=== PATIENT | female | born 1990 | race Caucasian/White ===

== ENCOUNTER 2016-08-29 18:21 | Emergency (ER) | payer SELFPAY ==
[~2016-08-29 18:21] MED LIST: PRENATAL VITAMI1 T10 PO
--- NOTE | 2016-08-29 18:50 | NUR ---
CALLED PT FOR TRIAGE ASSESSMENT, NO ANSWER.
--- NOTE | 2016-08-29 19:00 | NUR ---
PATIENT LEFT WITHOUT BEING SEEN BY DR. KEANE. NO FURTHER CARE PROVIDED FOR PATIENT.
== END 2016-08-29 19:00 | disposition left against medical advice (07) ==
LOC: MED 18:21
DX: G43.909 Migraine, unspecified, not intractable, without status migrainosus (principal); Z53.21 Procedure and treatment not carried out due to patient leaving prior to being seen by health care provider

== ENCOUNTER 2016-10-22 01:34 | Emergency (ER) | payer OTHER ==
[~2016-10-22] VITALS: Ht 167.6 cm; Wt 71.2 kg
[~2016-10-22 01:34] MED LIST changes: +PREN-385 PO; -PRENATAL VITAMI1 T10 PO
[2016-10-22 01:44] VITALS: BP 117/71
--- NOTE | 2016-10-22 02:00 | NUR ---
AMBULATED TO ER BED 8
--- NOTE | 2016-10-22 03:18 | NUR ---
Patient being evaluated by physician at bedside.
[2016-10-22 03:54] VITALS: BP 117/71
== END 2016-10-22 03:54 | disposition home or self-care (01) ==
LOC: MED 01:34
DX: N94.6 Dysmenorrhea, unspecified (principal); Z79.899 Other long term (current) drug therapy
CPT/HCPCS: 81002; 81025; 99282

== ENCOUNTER 2017-05-07 01:25 | Emergency (ER) | payer OTHER ==
[~2017-05-07] VITALS: Ht 167.6 cm; Wt 67.2 kg
[2017-05-07 01:35] VITALS: BP 134/81
--- NOTE | 2017-05-07 01:41 | NUR ---
TO ER BED 11
--- NOTE | 2017-05-07 01:45 | NUR ---
Pt states that she and her partner were having intercourse earlier in the evening when she began experincing severe vaginal and lower back pain. Pt A&Ox4. Pt denies vaginal discharge at this time. Pt afebrile. Pt sates pain has diminished since time of incident. ER MD notified. Pt in poc in bed. VSS. Continue to monitor.
[2017-05-07] MEDS ORDERED: ALBUTEROL SULFATE/IPRATROPIU 3 ML SOL IH ONE (02:20)
[2017-05-07] MEDS ORDERED: cefTRIAXone 250 MG in LIDOCAINE MPF 1% - **ER/OR** 0.9 ML IM ONE (02:30)
[2017-05-07] MEDS ORDERED: IBUPROFEN 800 MG TAB PO ONE (02:30)
[2017-05-07] MEDS ORDERED: AZITHROMYCIN 250 MG TAB PO ONE (02:30)
[2017-05-07 03:35] VITALS: BP 134/81
--- NOTE | 2017-05-07 03:35 | NUR ---
Patient discharged with v/s stable. Written and verbal after care instructions given and explained. Patient alert, oriented and verbalized understanding of instructions. Ambulatory with steady gait. All questions addressed prior to discharge. ID band removed. Patient advised to follow up with PMD. Rx of Motrin and Miralax given. Patient educated on indication of medication including possible reaction and side effects. Opportunity to ask questions provided and answered.
--- NOTE | 2017-05-07 04:54 | NUR ---
Sobia clements in [facility] - 05/07/17 at 0455 by LILLIAMJ dc
[2017-05-09 06:24] LABS: CHLAMYDIA TRACHOMATIS AMP DNA Negative (Negative)
== END 2017-05-07 03:35 | disposition home or self-care (01) ==
LOC: MED 01:25
DX: R10.2 Pelvic and perineal pain (principal); R11.0 Nausea; K59.00 Constipation, unspecified; Z79.899 Other long term (current) drug therapy
CPT/HCPCS: 36415; 74018; 81002; 81025; 96372; 99285; J0696; J2001; 87491

== ENCOUNTER 2017-06-19 08:08 | Emergency (ER) | payer OTHER ==
[~2017-06-19] VITALS: Ht 167.6 cm; Wt 72.6 kg
[2017-06-19 08:18] VITALS: BP 127/72
--- NOTE | 2017-06-19 08:25 | NUR ---
PATIENT PRESENTS TO ED WITH frontal lobe ludwig and severe nausea . PT STATES . DENIES D; SKIN IS PINK/WARM/DRY; AAOX4 WITH EVEN AND STEADY GAIT; LUNGS CLEAR BL; HR EVEN AND REGULAR; PT DENIES ANY FEVER, CP, SOB, OR COUGH AT THIS TIME; PATIENT STATES PAIN OF 10/10 AT THIS TIME; VSS; PATIENT POSITIONED FOR COMFORT; HOB ELEVATED; BEDRAILS UP X2; BED DOWN. ER MD MADE AWARE OF PT STATUS.
[2017-06-19] MEDS ORDERED: SUMAtriptan 6 MG/0.5 ML VIAL SUBQ ONE (08:35)
[2017-06-19] MEDS ORDERED: ONDANSETRON 4 MG ODT PO ONE (08:35)
[2017-06-19] MEDS ORDERED: KETOROLAC 30 MG/ML VIAL IM ONE (09:35)
--- NOTE | 2017-06-19 10:41 | NUR ---
PT C/O PERSISTENT HEADACHE 12/10. KEPT ENVIRONMENT CALM, DIM LIGHT. KEPT PT ON COMORTABLE POSITION. ADMINISTERED MEDICATION PER ORDERED.
[2017-06-19] MEDS ORDERED: SUMAtriptan 25 MG TAB PO ONE (10:55)
[2017-06-19] MEDS ORDERED: APAP/BUTAL/CAFF 325/50/40 MG 1 TAB PO ONE (11:00)
--- NOTE | 2017-06-19 11:23 | NUR ---
PT C/O PERSISTANT HEADACHE 12/10. MEDICATED PER ORDER FOR PAIN.
--- NOTE | 2017-06-19 11:53 | NUR ---
PT VERBALIZED REDUCED PAIN.
[2017-06-19 11:58] VITALS: BP 128/76
--- NOTE | 2017-06-19 12:07 | NUR ---
PT DISCHARGED ON STABLE CONDITION. DISCHARGE TEACHING PROVIDED REGARDING MEDICATION, HOME CARE, AND F/U . VERBALIZED UNDERSTANDING.
== END 2017-06-19 12:07 | disposition home or self-care (01) ==
LOC: MED 08:08
DX: G43.909 Migraine, unspecified, not intractable, without status migrainosus (principal); Z79.899 Other long term (current) drug therapy
CPT/HCPCS: 96372; 99284; J1885; J3030; Q0163; S0119

== ENCOUNTER 2019-09-16 15:36 | Emergency (ER) | payer OTHER ==
[~2019-09-16] VITALS: Ht 167.6 cm; Wt 79.4 kg
[2019-09-16 16:15] VITALS: BP 130/84
[2019-09-16] MEDS ORDERED: KETOROLAC 30 MG/ML VIAL IM ONE (17:10)
--- NOTE | 2019-09-16 17:10 | NUR ---
PT TO CHAIR C
--- NOTE | 2019-09-16 17:20 | NUR ---
29 Y/O FEMALE FROM HOME C/O LT ANKLE PAIN S/P TRIPPING OVER BALL AND "TWISTING" ANKLE. PT STATES SHE HEARD AND FELT A POP. PER PT SHE IS UNABLE TO AMBULATED. NOTICABLE SWELLING TO LATERAL ASPECT OF ANKLE. 8/10 ACHING/THROBBING. HAS NOT TAKEN MEDICATION FOR PAIN. SKIN WARM, DRY, INTACT. AWAKE AND ALERT POSITIONED FOR COMFORT. VSS MEDHX: DENIES
--- NOTE | 2019-09-16 18:00 | NUR ---
DECREASE IN PAIN AFTER TORADOL IM. PAIN AT TOLERABLE LEVEL
--- NOTE | 2019-09-16 18:09 | NUR ---
POSTERIOR SHORT LEG SPLINT APPLIED TO PTS LET LEG. CAP REFILL <2 SEC, SKIN WARM DRY AND INTACT AFTER PLACEMENT. PT VERBALIZES AND RETURN DEMONSTRATES USE OF CRUTCHES.
--- NOTE | 2019-09-16 18:13 | NUR ---
APPLIED POSTERIOR SHORT LEG SPLINT TO LEFT ANKLE WITHOUT ANY ISSUES. PT DEMONSTRATED PROPER USE OF CRUTCHES WITHOUT ANY ISSUES
[2019-09-16 18:14] VITALS: BP 122/79
--- NOTE | 2019-09-16 18:15 | NUR ---
Patient discharged with v/s stable. Written and verbal after care instructions given and explained. Patient alert, oriented and verbalized understanding of instructions. Ambulatory with steady gait. All questions addressed prior to discharge. ID band removed. Patient advised to follow up with PMD. Rx of IBUPROFEN 600MG given. Patient educated on indication of medication including possible reaction and side effects. Opportunity to ask questions provided and answered.
== END 2019-09-16 18:15 | disposition home or self-care (01) ==
LOC: MED 15:36
DX: S82.832A Other fracture of upper and lower end of left fibula, initial encounter for closed fracture (principal); R03.0 Elevated blood-pressure reading, without diagnosis of hypertension; Z79.899 Other long term (current) drug therapy; X58.XXXA Exposure to other specified factors, initial encounter; Y93.89 Activity, other specified; Y92.89 Other specified places as the place of occurrence of the external cause; Y99.8 Other external cause status
CPT/HCPCS: 29515; 73610; 96372; 99283; J1885

== ENCOUNTER 2019-11-25 22:07 | Emergency (ER) | payer OTHER ==
[~2019-11-25] VITALS: Ht 167.6 cm; Wt 83.9 kg
[2019-11-25 22:24] VITALS: BP 125/81
--- NOTE | 2019-11-25 22:28 | NUR ---
PT AMBULATED TO BED 3 WITH STEADY GAIT
--- NOTE | 2019-11-25 22:30 | NUR ---
PT RESTING IN BED IN POSITION OF COMFORT, BED LOW AND LOCKED, SIDERAILS UP, VSS, WILL CONTINUE TO MONTIOR
[2019-11-25] MEDS ORDERED: ONDANSETRON 4 MG ODT PO ONE (22:50)
[2019-11-25] MEDS ORDERED: cephALEXin 500 MG CAP PO ONE (22:50)
[2019-11-25 23:48] VITALS: BP 125/81
--- NOTE | 2019-11-25 23:48 | NUR ---
Patient discharged with v/s stable. Written and verbal after care instructions given and explained. Patient alert, oriented and verbalized understanding of instructions. Ambulatory with steady gait. All questions addressed prior to discharge. ID band removed. Patient advised to follow up with PMD. Rx of ZOFRAN/CEPHALEXIN given. Patient educated on indication of medication including possible reaction and side effects. Opportunity to ask questions provided and answered.
--- NOTE | 2019-11-28 18:15 | NUR ---
Urine culture received from lab. Culture and sensitivity received and shown to Dr. Smith. New Rx for Cipro 500mg BID x 5 days received. Patient called but patient's phone number on file was disconnected. Addendum: 11/28/19 at 1848 by [facility] Copy of result placed in discrepency folder.
--- NOTE | 2019-11-28 18:16 | NUR ---
PRIMARY PHONE NUMBER FOR PATIENT ON FILE IS NO LONGER IN SERVICE. I ATTEMPTED TO CALL THE NEXT OF KIN PATIENT'S MOTHER AND THE CALL WENT TO [employer] AND THE [employer] BOX WAS FULL AND UNABLE TO LEAVE A MESSAGE.
== END 2019-11-25 23:48 | disposition home or self-care (01) ==
LOC: MED 22:07
DX: N10 Acute pyelonephritis (principal); Z79.899 Other long term (current) drug therapy
CPT/HCPCS: 81002; 81025; 87086; 87186; 99283; Q0162